=== PATIENT | male | born 1960 | race Caucasian/White ===

== ENCOUNTER 2017-11-28 12:13 | Observation (INO) ==
[2017-11-28] MEDS ORDERED: 0.9 % Sodium Chloride 500 ML IVC ONE (12:24)
[2017-11-28] MEDS ORDERED: Aspirin 81 MG TAB.CHEW PO ONE (12:24)
[2017-11-28 12:44] LABS: Basophils % 0.5 %; Eosinophils # 0.1 K/mcL (0.0-0.6); Hematocrit 42.7 % (37.5-50.1); Hemoglobin 14.5 g/dL (12.9-16.9); Immature Granulocytes % 0.2 % (0-4); Lymphocytes # 1.6 K/mcL (0.6-4.6); Mean Corpuscular Hemoglobin 32.8 pg (28.0-33.3); Mean Corpuscular Volume 96.6 fL (83.0-100.0); Mean Platelet Volume 10.1 fL (9.4-12.4); Monocytes # 0.6 K/mcL (0.0-1.3); Monocytes % 9.8 %; Neutrophils # 3.7 K/mcL (1.6-8.9); Platelet Count 131 K/mcL (140-400); Red Blood Count 4.42 M/mcL (4.19-5.50); Segmented Neutrophils % 61.5 %
[2017-11-28 12:53] LABS: Prothrombin Time 11.7 Seconds (9.4-12.1)
[2017-11-28 12:56] LABS: Activated Partial Thrombo Time 32.5 Seconds (26.0-36.0)
[2017-11-28 13:06] LABS: BUN/Creatinine Ratio 15 (6-26); Blood Urea Nitrogen 17 mg/dL (6-20); Calcium 9.4 mg/dL (8.6-10.3); Carbon Dioxide 26 mEq/L (23-29); Chloride 109 mEq/L (98-107); Glucose 108 mg/dL (70-105); Osmolality,Calculated 286 (280-300); Potassium 3.9 mEq/L (3.5-5.1); Sodium 137 mEq/L (136-145); eGFR For African Americans > 60 (> 60); eGFR For Non-African Americans > 60 (> 60)
[2017-11-28 13:07] LABS: Troponin I < 0.03 ng/mL (< 0.04)
--- NOTE | 2017-11-28 14:16 | Emergency Department Note ---
Disposition Clinical Impression: Chest pain Qualifiers: Chest pain type: unspecified Qualified Code(s): R07.9 - Chest pain, unspecified Disposition: Admitted As Inpatient Condition: Good Referrals: Justo Amaral MD [Primary Care Provider] - Time of Disposition: 14:24 Chest Pain HPI - General Chief Complaint: ED Chest Pain Stated Complaint: arm pain/back pain Source: patient, EMS Mode of arrival: EMS Limitations: no limitations Vital Signs Reviewed: Yes Nursing Notes Reviewed: Yes - History of Present Illness HPI Narrative: Patient presents emergency room from home for evaluation of chest pain. Patient symptom onset last night and went away after one spray of nitroglycerin and then came back again the middle the night and woke sleepiness been persistent since then. Patient denies any nausea vomiting or diarrhea headache vision changes shortness of breath fevers or chills. His main complaint is chest pain. 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 Onset: during rest Pain Location: substernal, left chest Severity: none Severity scale (1-10): 0 Quality: tightness, heaviness Pain Radiation: LUE Improves with: nitroglycerin Worsens with: nothing Treatments prior to arrival chest pain: aspirin, nitroglycerin - Related Data Home Medications Medication Instructions Recorded Confirmed Metoprolol Succinate [Toprol Xl] 25 mg PO DAILY 11/28/17 11/28/17 Nitroglycerin [Nitrolingual] 1 spr SL Q5M PRN 11/28/17 11/28/17 amLODIPine [Norvasc] 5 mg PO DAILY 11/28/17 11/28/17 Allergies Allergy/AdvReac Type Severity Reaction Status Date / Time No Known Allergies Allergy Verified 11/28/17 13:07 All systems ED: reviewed and negative except as stated. Review of Systems: As Per HPI Constitutional: Denies: fever, chills Cardiovascular: Reports: chest pain. Denies: palpitations, dyspnea on exertion , orthopnea, edema Respiratory: Denies: cough, dyspnea, wheezes Gastrointestinal: Denies: abdominal pain, nausea, vomiting, diarrhea Genitourinary: Denies: urgency, dysuria Musculoskeletal: Denies: back pain, neck pain Neurological: Denies: headache Chest Pain PMH - Past Medical History Medical history: Reports: hyperlipidemia, hypertension Psychiatric history: Reports: no psych history - Social History Smoking Status: Current every day smoker Alcohol use: Reports: occasionally Drug use: Reports: marijuana Physical Exam - General Limitations: no limitations General appearance: alert, in no apparent distress - Head Head exam: atraumatic, normocephalic, normal inspection - Eye Eye exam: Present: normal appearance, PERRL, EOMI - ENT ENT exam: normal exam, normal oropharynx, mucous membranes moist - Neck Neck exam: Present: normal inspection, full ROM, trachea midline - Chest Chest inspection: Present: normal inspection, symmetric chest wall rise - Respiratory Respiratory exam: Present: normal lung sounds bilaterally. Absent: respiratory distress, wheezes - Cardiovascular Cardiovascular exam: Present: regular rate, normal rhythm, normal heart sounds - Abdominal Exam Abdominal exam: Present: soft, Non-Tender, normal bowel sounds. Absent: tenderness, distention, guarding, rebound, rigidity, Mcfarland's sign, Rovsing's sign, tenderness at McBurney's Point - Extremities Exam Extremities exam: Present: normal inspection, full ROM, normal capillary refill. Absent: tenderness - Back Exam Back exam: Present: normal inspection, full ROM. Absent: tenderness - Neurological Exam Neurological exam: Present: alert, oriented X3, CN II-XII intact, normal gait - Skin Skin exam: Present: warm, dry, intact, normal color Course Course Narrative: Patient seen and examined the time of arrival. See history of present illness. 57-year-old male with known coronary disease hypertension hyperlipidemia and diabetes presents emergency room with anginal-like presentation. Patient has nitroglycerin spray home secondary to history of angina. None of those records at this facility. Vital signs reviewed and are stable. Patient is denying any symptoms on arrival. He was provided with aspirin and nitroglycerin in transit. The symptoms completely resolved after single tablet of nitroglycerin. Vital signs initial evaluation are stable. Physical exam shows a thin frail-appearing gentleman who does have a smoking history. His lungs are clear his heart is regular abdomen is soft nontender nondistended with no guarding no rigidity or peritoneal symptoms. Patient's symptoms did start in his chest wall radiating to his arms and his left chest wall. This is identical to all of his other history of anginal-like presentation. Patient l will have cardiac evaluation completed with EKG chest x-ray CBC chemistry troponin and BMP in the most likely admission. Aspirin nitroglycerin will be provided if needed. Patient otherwise is asymptomatic and evaluation here at the beginning of the stay. Patient informed about admitted after the workup is completed Understands is comfortable to plantar - Reevaluation(s) Reevaluation #1: EKG shows stable rhythm. No comparable evaluation. Patient has no acute signs of ST segment elevation or abnormality. Patient has not had any symptoms while here. He denied any symptoms on a repeat evaluation at the bedside. Nicotine to moderate until the full laboratory workup is completed and established admission process will be completed clinical suspicion for other etiology including aortic dissection and aneurysm or intrathoracic related pathology considering the patient's chest x-ray and his physical exam are unremarkable and he has no specific history. Time: 13:00 Reevaluation #2: Labs are completely unremarkable this time. The hospitalist Dr. cruz and I reviewed the patient's presentation symptoms and the medical issues. She will be admitted at this time for cardiac related disease and evaluation. No other acute concerns or issues noted this point. Patient otherwise currently stable in no distress at the time of the admission. Time: 14:22 Vital Signs Temperature 97.9 F 11/28/17 12:21 Pulse Rate 58 11/28/17 12:21 Respiratory Rate 12 11/28/17 12:21 Blood Pressure 129/59 11/28/17 12:21 O2 Sat by Pulse Oximetry 98 11/28/17 12:21 Temperature 97.9 F 11/28/17 12:21 Pulse Rate 49 11/28/17 14:03 Respiratory Rate 16 11/28/17 14:03 Blood Pressure 144/95 11/28/17 14:03 O2 Sat by Pulse Oximetry 96 11/28/17 14:03 Oxygen Delivery Oxygen Delivery Room Air Chest Pain - MDM Narrative Medical decision making narrative: ACS, chest pain - Medical Records Medical records reviewed: Yes I reviewed the patient's medical records. - Lab Data Lab results reviewed: Yes I reviewed the patient's lab results. Result diagrams: 11/28/17 12:34 11/28/17 12:34 Lab Results 11/28/17 11/28/17 11/28/17 Range/Units 12:34 12:34 12:34 WBC 6.0 (4.3-11.1) K/mcL RBC 4.42 (4.19-5.50) M/mcL Hgb 14.5 (12.9-16.9) g/dL Hct 42.7 (37.5-50.1) % MCV 96.6 (83.0-100.0) fL MCH 32.8 (28.0-33.3) pg MCHC 34.0 (31.6-35.5) g/dL RDW 14.0 (11.5-14.5) % Plt Count 131 L (140-400) K/mcL MPV 10.1 (9.4-12.4) fL Immature Gran % 0.2 (0-4) % Seg Neutrophils % 61.5 % Lymphocytes % 26.0 % Monocytes % 9.8 % Eosinophils % 2.0 % Basophils % 0.5 % Neutrophils # 3.7 (1.6-8.9) K/mcL Lymphocytes # 1.6 (0.6-4.6) K/mcL Monocytes # 0.6 (0.0-1.3) K/mcL Eosinophils # 0.1 (0.0-0.6) K/mcL Basophils # 0.0 (0.0-0.2) K/mcL PT 11.7 (9.4-12.1) Seconds INR 1.0 APTT 32.5 (26.0-36.0) Seconds Sodium (136-145) mEq/L Potassium (3.5-5.1) mEq/L Chloride (98-107) mEq/L Carbon Dioxide (23-29) mEq/L BUN (6-20) mg/dL Creatinine (0.70-1.30) mg/dL Est GFR ( Amer) (> 60) Est GFR (Non-Af Amer) (> 60) BUN/Creatinine Ratio (6-26) Glucose (70-105) mg/dL Calculated Osmolality (280-300) Calcium (8.6-10.3) mg/dL Troponin I (< 0.04) ng/mL B-Natriuretic Peptide 100 H (Less than 100) pg/mL 11/28/17 Range/Units 12:34 WBC (4.3-11.1) K/mcL RBC (4.19-5.50) M/mcL Hgb (12.9-16.9) g/dL Hct (37.5-50.1) % MCV (83.0-100.0) fL MCH (28.0-33.3) pg MCHC (31.6-35.5) g/dL RDW (11.5-14.5) % Plt Count (140-400) K/mcL MPV (9.4-12.4) fL Immature Gran % (0-4) % Seg Neutrophils % % Lymphocytes % % Monocytes % % Eosinophils % % Basophils % % Neutrophils # (1.6-8.9) K/mcL Lymphocytes # (0.6-4.6) K/mcL Monocytes # (0.0-1.3) K/mcL Eosinophils # (0.0-0.6) K/mcL Basophils # (0.0-0.2) K/mcL PT (9.4-12.1) Seconds INR APTT (26.0-36.0) Seconds Sodium 137 (136-145) mEq/L Potassium 3.9 (3.5-5.1) mEq/L Chloride 109 H (98-107) mEq/L Carbon Dioxide 26 (23-29) mEq/L BUN 17 (6-20) mg/dL Creatinine 1.15 (0.70-1.30) mg/dL Est GFR ( Amer) > 60 (> 60) Est GFR (Non-Af Amer) > 60 (> 60) BUN/Creatinine Ratio 15 (6-26) Glucose 108 H (70-105) mg/dL Calculated Osmolality 286 (280-300) Calcium 9.4 (8.6-10.3) mg/dL Troponin I < 0.03 (< 0.04) ng/mL B-Natriuretic Peptide (Less than 100) pg/mL - Radiology Data Radiology results reviewed: Yes I reviewed the patient's radiology results. Chest x-ray is unremarkable for acute signs widening of the mediastinum or pulmonary congestion or infection - EKG Data EKG attestation: Yes I reviewed and interpreted this EKG. EKG results narrative: EKG shows sinus bradycardia. Ventricular rate of 51. FL interval 166. QRS duration of 97. QTC of 384. Achille appears to be normal. No acute signs of ST segment elevation or abnormality. No acute signs of WPW. Patient does have hyperacute T waves in lead V3 with possible U wave but his potassium is normal. No previous EKG for comparison. Heart Score - Score History: Moderately Suspicious EKG: Non Specific repolarisation Disturbance Age: 45-65 Risk Factors: Equal/Greater than 3 risk factor or history of atherosclerotic disease Troponin: Less than normal limit HEART Score Total: 5
[2017-11-28] MEDS ORDERED: *HR* HYDROcodone/Acet 5/325 mg TABLET PO PRN (15:01)
[2017-11-28] MEDS ORDERED: Naloxone 0.4 MG/ML INJ IVP PRN (15:01)
[2017-11-28] MEDS ORDERED: Acetaminophen 325 MG TABLET PO PRN (15:01)
[2017-11-28] MEDS ORDERED: Nitroglycerin 0.4 MG TAB.SUBL SL PRN (15:10)
--- NOTE | 2017-11-28 15:13 | Internal Med History&Physical ---
<DavidLee Guerra - Last Filed: 11/28/17 17:47> Date of Encounter: 11/28/17 Time of Encounter: 14:30 Internal Medicine - H&P: HPI Chief complaint: CP Admitted From: Emergency Dept Plans for Post Hospital Care: Home History of present illness: Mr. Horton is a 57 year old male w/PMH of HLD and HTN presents from the ED w/CC of bilateral arm and back pain that began at approx 03:00 this morning as pain in the right arm and later in the morning became pain in both arms and pain in the shoulder blades that extended down his back. Pt. reports taking nitro spray which he states helped the pain after awhile. Reports SOB and diaphoresis but denies N/V. Pt. states these sx have happened before approx. 1 year ago. Pt. denies actual CP, hx of previous DC or stents, recent illness, fever, chills, nausea, vomiting, changes in vision, headache, cough, congestion, unusual bleeding, abdominal pain, diarrhea, constipation, dizziness, lightheadedness, numbness, tingling, pre-syncope, or syncope. Past Med Surg Social Fam HX - Past Medical History Source: patient, old records reviewed Medical history: hyperlipidemia, hypertension Psychiatric history: no psych history - Social History Smoking Status: Current every day smoker Packs per day: 1/2 PPD Alcohol use: occasionally Drug use: marijuana Current living situation: Home Activity Level: Independent ambulation Recent Out of Country Travel Within the Last 8 Weeks: No Exposure or Possible Exposure to Illness During Travel: No - Family History Father Race: Family Member Ethnicity: Non- Living Status: Age at : 84 Cause of : Cancer Hx Family Cancer: Yes (Type unknown) Mother History Unknown: Yes Race: Family Member Ethnicity: Non- Living Status: Brother Race: Family Member Ethnicity: Non- Living Status: Cause of : DC Hx Family Cardiac Disorders: Yes (DC, CAD) Sister Race: Family Member Ethnicity: Non- Living Status: Age at : 17 Cause of : Car accident Internal Medicine - H&P: Meds Metoprolol Succinate [Toprol Xl] 25 mg PO DAILY 11/28/17 [History] Nitroglycerin [Nitrolingual] 1 spr SL Q5M PRN 11/28/17 [History] amLODIPine [Norvasc] 5 mg PO DAILY 11/28/17 [History] 3 Allergy/AdvReac Type Severity Reaction Status Date / Time No Known Allergies Allergy Verified 11/28/17 13:07 All Systems PM: A 10-system review of systems was performed and is negative for pertinent findings except as documented above in the HPI. - Constitutional Constitutional: no chills, no fever(s), no night sweats - EENT Eyes: no change in vision, no discharge, no pain, no photophobia Ears: no ear discharge, no ear pain, no tinnitus Nose, mouth and throat: no dysphagia, no nasal discharge, no neck pain, no sore throat - Breasts Breasts: as per HPI - Cardiovascular Cardiovascular ROS IM: as per HPI, diaphoresis, dyspnea, dyspnea on exertion, irregular heart rhythm (Bradycardia), no chest pain, no lightheadedness, no palpitations, no syncope - Respiratory Respiratory: as per HPI, dyspnea, dyspnea on exertion, no cough, no wheezing, no excessive phlegm production - Gastrointestinal Gastrointestinal: no abdominal pain, no diarrhea, no hematemesis, no hematochezia, no melena, no nausea, no vomiting - Genitourinary Genitourinary ROS male: as per HPI - Musculoskeletal Musculoskeletal ROS IM: as per HPI, other (Bilateral arm and back pain), no numbness, no tingling - Integumentary Integumentary IM: as per HPI, no rash, no unusual bruising - Neurological Neurological ROS: no confusion, no convulsions, no focal weakness, no numbness, no tingling, no tremor(s) - Psychiatric Psychiatric: as per HPI - Endocrine Endocrine IM: as per HPI - Hematologic/Lymphatic Hematologic/Lymphatic: no easy bruising - Allergic/Immunologic Allergic/Immunologic: as per HPI - Constitutional Vitals: Temp Pulse Resp BP Pulse Ox 97.9 F 49 16 144/95 96 11/28/17 12:21 11/28/17 14:03 11/28/17 14:03 11/28/17 14:03 11/28/17 14:03 General appearance: Present: cooperative, A&O X 3, pleasant, no acute distress, underweight, answers questions appropriately - Head Head exam: Present: atraumatic, normocephalic - Eye Eye exam: Present: PERRL, conjuntiva pink, sclera anicteric Pupils: Present: PERRL - ENT ENT exam: Present: normal exam - Neck Neck exam general surgery: Present: supple, trachea midline. Absent: lymphadenopathy - Respiratory Respiratory exam: Present: CTAB. Absent: accessory muscle use, rales, rhonchi, wheezes - Cardiovascular Cardiovascular exam: Present: bradycardia - GI/Abdominal GI/Abdominal exam: Present: normal bowel sounds, soft, no peritoneal signs. Absent: distended, tenderness - Rectal Rectal exam: Present: deferred - Additional comments: exam deferred. - Extremities Exam Extremities exam: Present: warm, radial pulses palpable and symmetrical. Absent : calf tenderness, cyanotic, pedal edema - Back Exam Back exam: Present: normal inspection - Neurological Exam Neurological exam: Present: alert, CN II-XII intact, oriented X3, no focal deficits. Absent: pronater drift, facial droop, speech deficit - Psychiatric Psychiatric exam: Present: normal affect, normal mood - Skin Skin exam: Present: dry, intact Internal Med - H&P Results - Labs CBC & Chem 7: 11/28/17 12:34 11/28/17 12:34 - EKG Data EKG shows normal: sinus rhythm Rate: bradycardia - EKG Data Prior EKG available for review: no EKG comments: 11/28/17 15:26 EKG dated 11/28/17 shows sinus bradycardia with possible left atrial enlargement. - Diagnostic Studies Chest x-ray Additional comments: Impressions Chest X-Ray 11/28/17 12:24 IMPRESSION: 1. No acute cardiopulmonary disease. D/ / Hafsa Luna MD / Hafsa Luna MD Interpreting Provider: Hafsa Luna MD - Assessment and plan (1) Chest pain Current Visit: Yes Status: Acute Assessment and plan: Acute on chronic atypical CP that pt. reports as pain in bilateral arms w/ radiation to his back and shoulder blades. Reports diaphoresis but no N/V. Denies cardiac hx of previous DC, heart catheterizations, or stents. No recent Echocardiogram. EKG today shows sinus bradycardia with possible left atrial enlargement. Initial troponin <0.03. Will trend. Echocardiogram ordered. NPO @ midnight for nuclear pharm stress test in the a.m. 80 mg Lipitor once. 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 Will continue daily aspirin. Nitro SL PRN. Lipid panel in a.m. labs. Consider adding Lipitor to home meds based on lipid panel results. Pt. discussed w/Dr. Monge who agrees w/plan of care. Pt. is high risk for cardiac event and further morbidity d/t current sx, hx of same recurrent sx, familial hx of DC, current tobacco abuse; and risk factors of HTN and HLD. Observation. Qualifiers: Chest pain type: unspecified Qualified Code(s): R07.9 - Chest pain, unspecified (2) Elevated brain natriuretic peptide (BNP) level Current Visit: Yes Status: Acute Assessment and plan: Acutely elevated BNP of 10 on admission. Pt. denies hx or dx of CHF. Denies pedal edema and none on exam. Echocardiogram ordered. Supplemental O2 w/ titration and SpO2 monitoring. Monitor pt. and f/u labs. (3) HTN (hypertension) Current Visit: Yes Status: Chronic Assessment and plan: Hx of chronic HTN. Monitor pt. and VS. Continue pts. Norvasc and Metoprolol. Qualifiers: Hypertension type: essential hypertension Qualified Code(s): I10 - Essential (primary) hypertension (4) HLD (hyperlipidemia) Current Visit: Yes Status: Chronic Assessment and plan: Hx of chronic HLD. Lipid panel ordered in a.m. labs. Pt. does not currently take statin. 80 mg PO Lipitor ordered once d/t current sx. Consider adding Lipitor to home medications based on lipid panel results. Qualifiers: Hyperlipidemia type: pure hypercholesterolemia Qualified Code(s): E78.00 - Pure hypercholesterolemia, unspecified; E78.0 - Pure hypercholesterolemia (5) DVT prophylaxis Current Visit: Yes Status: Acute Assessment and plan: Heparin 5,000 units SQ Q8HR for DVT prophylaxis. Monitor pt. for signs of bleeding. (6) SOB (shortness of breath) Current Visit: Yes Status: Acute Assessment and plan: Acute SOB d/t current sx. Pt. denies home O2 use but reports SOB/dyspnea during previous sx as today. Supplemental O2 w/titration and SpO2 monitoring. - Time Spent With Patient Total time spent is greater than 50% in coordination of care (as documented) at patient's floor/unit and/or counseling patient: Greater than 35 minutes <Madhav Monge - Last Filed: 11/28/17 21:33> Date of Encounter: 11/28/17 Internal Medicine - H&P: HPI History of present illness: Mr. Horton is a 57 year old male All Systems PM: A 10-system review of systems was performed and is negative for pertinent findings except as documented above in the HPI. - Constitutional Vitals: Temp Pulse Resp BP Pulse Ox 98 F 87 14 124/86 95 11/28/17 19:29 11/28/17 19:29 11/28/17 19:29 11/28/17 19:29 11/28/17 19:29 Internal Med - H&P Results - Labs CBC & Chem 7: 11/28/17 12:34 11/28/17 12:34 Labs: Cardiac Enzymes 11/28/17 Range/Units 18:30 Troponin I < 0.03 (< 0.04) ng/mL - Attending Attestation Seen and assessed. Agree with plan per [employer]TER for nuclear stress test for chest pain. Follow up nuclear stress test - Assessment and plan (1) Chest pain Current Visit: Yes Status: Acute Qualifiers: Chest pain type: unspecified Qualified Code(s): R07.9 - Chest pain, unspecified (2) HTN (hypertension) Current Visit: Yes Status: Chronic Qualifiers: Hypertension type: essential hypertension Qualified Code(s): I10 - Essential (primary) hypertension (3) HLD (hyperlipidemia) Current Visit: Yes Status: Chronic Qualifiers: Hyperlipidemia type: pure hypercholesterolemia Qualified Code(s): E78.00 - Pure hypercholesterolemia, unspecified; E78.0 - Pure hypercholesterolemia (4) DVT prophylaxis Current Visit: Yes Status: Acute (5) Elevated brain natriuretic peptide (BNP) level Current Visit: Yes Status: Acute (6) SOB (shortness of breath) Current Visit: Yes Status: Acute - Time Spent With Patient Total time spent is greater than 50% in coordination of care (as documented) at patient's floor/unit and/or counseling patient:
[2017-11-28] MEDS: *HR* Heparin 5,000 UNIT/ML VIAL SQ SCH (21:42)
[2017-11-29 00:48] LABS: Alanine Aminotransferase 16 Units/L (7-52); Albumin 3.7 g/dL (3.5-5.7); Albumin/Globulin Ratio 1.8 (1.1-2.2); Alkaline Phosphatase 56 Units/L (34-104); Aspartate Amino Transferase 18 Units/L (13-39); BUN/Creatinine Ratio 15 (6-26); Bilirubin,Total 0.4 mg/dL (0.3-1.0); Blood Urea Nitrogen 17 mg/dL (6-20); Calcium 9.2 mg/dL (8.6-10.3); Carbon Dioxide 27 mEq/L (23-29); Chloride 107 mEq/L (98-107); Chol/HDL Ratio 3.6 (0-4.9); Cholesterol 183 mg/dL (< 200); Globulin 2.1 g/dL (2.4-3.5); Glucose 95 mg/dL (70-105); HDL Cholesterol 51 mg/dL (40-59); LDL Cholesterol,Calculated 115 mg/dL (0-99); Magnesium 1.8 mg/dL (1.6-2.6); Osmolality,Calculated 289 (280-300); Potassium 4.2 mEq/L (3.5-5.1); Sodium 139 mEq/L (136-145); Total Protein 5.8 g/dL (6.4-8.9); Triglycerides 83 mg/dL (< 150); eGFR For African Americans > 60 (> 60); eGFR For Non-African Americans > 60 (> 60)
[2017-11-29 00:58] LABS: Basophils % 0.6 %; Eosinophils # 0.2 K/mcL (0.0-0.6); Eosinophils % 2.7 %; Hematocrit 43.4 % (37.5-50.1); Hemoglobin 14.7 g/dL (12.9-16.9); Immature Granulocytes % 0.2 % (0-4); Lymphocytes # 2.2 K/mcL (0.6-4.6); Mean Corpuscular HGB Conc 33.9 g/dL (31.6-35.5); Mean Corpuscular Hemoglobin 33.2 pg (28.0-33.3); Mean Platelet Volume 10.5 fL (9.4-12.4); Monocytes # 0.5 K/mcL (0.0-1.3); Monocytes % 7.8 %; Neutrophils # 3.4 K/mcL (1.6-8.9); Platelet Count 131 K/mcL (140-400); Red Blood Count 4.43 M/mcL (4.19-5.50); Red Cell Distribution Width 14.2 % (11.5-14.5); Segmented Neutrophils % 53.7 %
[2017-11-29] MEDS: *HR* Heparin 5,000 UNIT/ML VIAL SQ SCH ×3 (06:21→22:05)
[2017-11-29 08:13] LABS: Estimated Average Glucose 131 mg/dl; Hemoglobin A1C 6.2 %
[2017-11-29] MEDS: Aspirin Enteric Coated 81 MG Tablet PO SCH (10:03)
[2017-11-29] MEDS: amLODIPine 5 MG TABLET PO SCH (10:03)
[2017-11-29] MEDS: Metoprolol XL (24 HR) Succ 25 MG TAB.ER.24H PO SCH (10:04)
--- NOTE | 2017-11-29 17:32 | Internal Med Progress Note ---
Date of Encounter: 11/29/17 Time of Encounter: 12:30 - Assessment and plan (1) Chest pain Current Visit: Yes Status: Acute Assessment and plan: Currently patient denies any chest pain cardiac enzymes have been negative 3 Patient underwent cardiac stress test approximately a month ago at [facility] we will obtain medical records According to patient he is to undergo a cardiac catheter at this facility within the next week. We will consult cardiology Continue with cardiac monitoring Continue with nitroglycerin as the for chest pain Continue with aspirin and beta danii lipid profile in a.m. Qualifiers: Chest pain type: unspecified Qualified Code(s): R07.9 - Chest pain, unspecified (2) HTN (hypertension) Current Visit: Yes Status: Chronic Assessment and plan: Continue with Norvasc and metoprolol currently controlled Qualifiers: Hypertension type: essential hypertension Qualified Code(s): I10 - Essential (primary) hypertension (3) HLD (hyperlipidemia) Current Visit: Yes Status: Chronic Assessment and plan: Encourage patient low-fat diet and lifestyle changes Hx of chronic HLD. Lipid panel Qualifiers: Hyperlipidemia type: pure hypercholesterolemia Qualified Code(s): E78.00 - Pure hypercholesterolemia, unspecified; E78.0 - Pure hypercholesterolemia (4) Elevated brain natriuretic peptide (BNP) level Current Visit: Yes Status: Acute Assessment and plan: BNP 100 ok, no fluid overload noted this time echo okay-EF 55-60% (5) SOB (shortness of breath) Current Visit: Yes Status: Acute Assessment and plan: No shortness of breath at this time we will use oxygen as needed to maintain SPO2 greater than 90% (6) DVT prophylaxis Current Visit: Yes Status: Acute Assessment and plan: Heparin 5,000 units SQ Q8HR for DVT prophylaxis. Monitor pt. for signs of bleeding. - Time Spent With Patient Total time spent is greater than 50% in coordination of care (as documented) at patient's floor/unit and/or counseling patient: - Subjective Interval history: Patient was seen and examined at the bedside. Currently patient denies any chest pain or shortness of breath. Patient does express that he underwent a cardiac stress test approxi-one month ago [facility] he is supposed to undergo a cardiac catheterization and actually has not appointment with cardiology within the next 2 weeks. We will obtain records from [facility]. I did discuss treatment plan with the patient verbalized understanding and agreement. - Constitutional Vitals: Temp Pulse Resp BP Pulse Ox 98.9 F 55 16 129/81 99 11/29/17 15:32 11/29/17 15:32 11/29/17 15:32 11/29/17 15:32 11/29/17 15:32 General appearance: Present: cooperative, A&O X 3, pleasant, no acute distress, underweight, answers questions appropriately - Head Head exam: Present: atraumatic, normocephalic - Eye Eye exam: Present: PERRL, conjuntiva pink, sclera anicteric Pupils: Present: PERRL - Neck Neck exam general surgery: Present: supple, trachea midline. Absent: lymphadenopathy - Respiratory Respiratory exam: Present: CTAB. Absent: accessory muscle use, rales, rhonchi, wheezes - Cardiovascular Cardiovascular exam: Present: RRR, +S1, +S2. Absent: diastolic murmur, gallop, rubs, systolic murmur - GI/Abdominal GI/Abdominal exam: Present: normal bowel sounds, soft, no peritoneal signs. Absent: distended, tenderness - Extremities Exam Extremities exam: Present: warm, radial pulses palpable and symmetrical. Absent : calf tenderness, cyanotic, pedal edema - Neurological Exam Neurological exam: Present: CN II-XII intact, oriented X3, no focal deficits. Absent: pronater drift, facial droop, speech deficit - Skin Skin exam: Present: dry, intact Internal Medicine: Result - Labs CBC & Chem 7: 11/29/17 00:08 11/29/17 00:08 Labs: Short CBC 11/29/17 Range/Units 00:08 WBC 6.4 (4.3-11.1) K/mcL Hgb 14.7 (12.9-16.9) g/dL Hct 43.4 (37.5-50.1) % Plt Count 131 L (140-400) K/mcL Neutrophils # 3.4 (1.6-8.9) K/mcL BMP 11/29/17 00:08 Sodium 139 Potassium 4.2 Chloride 107 Carbon Dioxide 27 BUN 17 Creatinine 1.16 Glucose 95 Calcium 9.2 Cardiac Enzymes 11/28/17 11/29/17 Range/Units 18:30 00:08 Troponin I < 0.03 < 0.03 (< 0.04) ng/mL Liver Function 11/29/17 Range/Units 00:08 Total Bilirubin 0.4 (0.3-1.0) mg/dL AST 18 (13-39) Units/L ALT 16 (7-52) Units/L Alkaline Phosphatase 56 (34-104) Units/L Albumin 3.7 (3.5-5.7) g/dL - ABG Interpretation ABG results: PT/INR, D-dimer PT 11.7 Seconds (9.4-12.1) 11/28/17 12:34 - Impressions Impressions Echocardiogram 11/28/17 15:10 Impressions: LVEF 55-60%. Normal left ventricular diastolic function. No pulmonary hypertension. No significant valvular dysfunction. Left Ventricular Wall Motion: Rest Echo Findings All wall segments showed normal motion. Findings: Study Quality * Technically adequate exam. Right Ventricle * Normal right ventricular structure and function. Left Atrium * Normal left atrial size. Right Atrium * Normal right atrial size. Interatrial Septum * No evidence of PFO by color Doppler. Aorta * Normally sized aortic root. Pericardium * The pericardium appears normal. Left Ventricle * LVEF 55-60%. * No segmental dysfunction. * Normal LV chamber size, wall thickness and function. * Normal left ventricular diastolic function. ECG Findings * Normal sinus rhythm. Aortic Valve * Normal aortic valve structure. * No aortic stenosis. * Mild aortic regurgitation. Tricuspid Valve * No tricuspid stenosis. * Trace tricuspid regurgitation. * Estimated RVSP is 22 mmHg. * No pulmonary hypertension. Mitral Valve * Normal mitral valve function. * No mitral stenosis. * Mild mitral regurgitation. IVC * Normal IVC dimensions and inspiratory collapse. Pulmonic Valve * No pulmonic regurgitation. * No pulmonic stenosis. Consult Discharge Plan - Plan Referrals: Justo Amaral MD [Primary Care Provider] -
[2017-11-30] MEDS: *HR* Heparin 5,000 UNIT/ML VIAL SQ SCH ×2 (05:52→15:16)
[2017-11-30 06:41] LABS: Basophils % 0.3 %; Eosinophils # 0.1 K/mcL (0.0-0.6); Eosinophils % 1.5 %; Hematocrit 42.8 % (37.5-50.1); Hemoglobin 14.6 g/dL (12.9-16.9); Immature Granulocytes % 0.2 % (0-4); Lymphocytes # 2.6 K/mcL (0.6-4.6); Lymphocytes % 28.3 %; Mean Corpuscular HGB Conc 34.1 g/dL (31.6-35.5); Mean Corpuscular Hemoglobin 32.7 pg (28.0-33.3); Mean Platelet Volume 10.7 fL (9.4-12.4); Monocytes # 0.7 K/mcL (0.0-1.3); Monocytes % 7.9 %; Neutrophils # 5.7 K/mcL (1.6-8.9); Platelet Count 135 K/mcL (140-400); Red Blood Count 4.46 M/mcL (4.19-5.50); Red Cell Distribution Width 13.8 % (11.5-14.5); Segmented Neutrophils % 61.8 %
[2017-11-30 06:59] LABS: Alanine Aminotransferase 17 Units/L (7-52); Albumin 3.8 g/dL (3.5-5.7); Albumin/Globulin Ratio 1.6 (1.1-2.2); Alkaline Phosphatase 52 Units/L (34-104); Aspartate Amino Transferase 15 Units/L (13-39); BUN/Creatinine Ratio 17 (6-26); Bilirubin,Total 0.6 mg/dL (0.3-1.0); Blood Urea Nitrogen 20 mg/dL (6-20); Calcium 9.3 mg/dL (8.6-10.3); Carbon Dioxide 26 mEq/L (23-29); Chloride 107 mEq/L (98-107); Globulin 2.4 g/dL (2.4-3.5); Glucose 103 mg/dL (70-105); Osmolality,Calculated 287 (280-300); Potassium 3.8 mEq/L (3.5-5.1); Sodium 137 mEq/L (136-145); Total Protein 6.2 g/dL (6.4-8.9); eGFR For African Americans > 60 (> 60); eGFR For Non-African Americans > 60 (> 60)
[2017-11-30] MEDS: Metoprolol XL (24 HR) Succ 25 MG TAB.ER.24H PO SCH (08:26)
[2017-11-30] MEDS: amLODIPine 5 MG TABLET PO SCH (08:49)
[2017-11-30] MEDS: Aspirin Enteric Coated 81 MG Tablet PO SCH (08:49)
[2017-11-30] MEDS ORDERED: Regadenoson 0.4 MG/5 ML SYRINGE IVP ONE (10:17)
--- NOTE | 2017-11-30 15:52 | Discharge Summary ---
- NOTES TO OUTPATIENT PROVIDER Notes to Outpatient Provider: Underwent a nuclear cardiac stress test which was negative for ischemia or infarct Orders not resulted at time of discharge: Pending orders 11/30/17 08:43 NM mehrdad perf SPECT multi [NM] Routine 12/01/17 04:00 Complete Blood Count [HEME] AM 0400 Comprehensive Metabolic Panel AM 0400 Date of Encounter: 11/30/17 Time of Encounter: 15:50 - Discharge Diagnosis (1) Chest pain Priority: Primary Status: Acute Qualifiers: Chest pain type: unspecified Qualified Code(s): R07.9 - Chest pain, unspecified (2) HTN (hypertension) Priority: Secondary Status: Chronic Qualifiers: Hypertension type: essential hypertension Qualified Code(s): I10 - Essential (primary) hypertension (3) HLD (hyperlipidemia) Priority: Secondary Status: Chronic Qualifiers: Hyperlipidemia type: pure hypercholesterolemia Qualified Code(s): E78.00 - Pure hypercholesterolemia, unspecified; E78.0 - Pure hypercholesterolemia (4) Elevated brain natriuretic peptide (BNP) level Priority: Secondary Status: Acute (5) SOB (shortness of breath) Priority: Secondary Status: Acute Hospital course: Mr. Horton is a 57 year old male past medical history of hyperlipidemia hypertension presented to the emergency department with complaints of bilateral arm and back pain which was relieved with nitroglycerin spray associated symptoms of shortness of breath diaphoresis no past history of MA or stents. Patient did state he had a recent stress test at [facility]. Obtained records from [facility] which did reveal the patient underwent cardiac stress test approximately 1 year ago, with no ischemia or infarct. Troponins were negative 3 echo with EF of 55-60% EKG with no ST-T wave abnormalities. Patient underwent nuclear cardiac stress test today which was negative for any ischemia or infarct. Advised patient to continue with current aspirin beta danii. Advised patient to follow-up with primary care provider since this provider knows him best and can adjust medications accordingly. Also advised patient to follow-up with cardiology as outpatient states he has an appointment next week. Patient is chest pain-free and is hemodynamically stable he is ready for discharge. Discharge discussed with: patient - Time Spent with Patient Total time spent providing and/or coordinating discharge services: - Discharge Medications Prescriptions: Varenicline Tartrate [Chantix Starting Month ANIKA] 1 each PO AD #1 dosepack Home Medications: Metoprolol Succinate [Toprol Xl] 25 mg PO DAILY 11/28/17 [History] Nitroglycerin [Nitrolingual] 1 spr SL Q5M PRN 11/28/17 [History] amLODIPine [Norvasc] 5 mg PO DAILY 11/28/17 [History] Varenicline Tartrate [Chantix Starting Month ANIKA] 1 each PO AD #1 dosepack 11/30 [Rx] Allergies/Adverse Reactions: 3 Allergy/AdvReac Type Severity Reaction Status Date / Time No Known Allergies Allergy Verified 11/28/17 13:07 Date of admission: 11/28/17 14:23 Primary care physician: Justo Amaral MD Consults: 11/28/17 15:05 Consult to [employer] Specialist [CONS] Routine Reason for SW Consult: Please assess patient for possible home needs for post discharge planning. Discharging clinician: Denise Khanna Anticipated date of discharge: 11/30/17 - Constitutional Vitals: Temp Pulse Resp BP Pulse Ox 98.0 F 55 16 126/79 95 11/30/17 06:00 11/30/17 06:00 11/30/17 06:00 11/30/17 06:00 11/30/17 06:00 General appearance: Present: cooperative, A&O X 3, pleasant, no acute distress, underweight, answers questions appropriately - Patient Status Disposition: Home, Self-Care Condition: Good Functional capacity at discharge: independent ambulation Overall status at discharge: patient is back to baseline - Discharge Instructions Follow Up With: Justo Amaral MD [Primary Care Provider] - 12/07/17 2:15 pm Miguel Kohler MD [Partnered Physician] - 12/09/17 2:00 pm (This appointment will be in [place], [place]. Thank you!! ) - Diet and Activity Activity: resume usual activities as tolerated Diet: low fat, low cholesterol
[2017-11-30 15:58] VITALS: BP 126/82
--- NOTE | 2017-12-01 08:14 | Electrocardiograph Report ---
[address] [address] Test Date: 2017-11-28 Pat Name: Musa Horton Department: 104 Room: 3B Gender: M [employer]: [place] : 1960 Requested By: Mohsen Patrick Order Number: [id number] Reading MD: Miguel Kohler Measurements Intervals [place] Rate: 51 P: 70 W[place]: 166 QRS: 68 QRSD: 97 T: 36 QT: 409 QTc: 384 Interpretive Statements SINUS BRADYCARDIA LEFT ATRIAL ENLARGEMENT Poor R wave progression Electronically Signed On 12-01-2017 8:13:10 EDT by Miguel Kohler
== END 2017-11-30 16:43 | disposition home or self-care (01) ==
LOC: 3BNU 12:13 → EMEROO 12:13 → 3BNU 14:57
PROVIDERS: ADMIT Student in an Organized Health Care Education/Training Program; ATTEND Student in an Organized Health Care Education/Training Program